=== PATIENT | male | born 1990 | race Caucasian/White ===

== ENCOUNTER 2020-03-01 03:52 | Emergency (ER) | payer OTHER ==
[~2020-03-01] VITALS: Ht 170.2 cm; Wt 70.5 kg
[2020-03-01] MEDS ORDERED: FLUORESCEIN OPHTH 1 MG STRIP OD ONE (06:15)
[2020-03-01] MEDS ORDERED: TETRACAINE 0.5% OPHTH SOLN 4ML OD ONE (06:15)
[2020-03-01] MEDS ORDERED: ACETAMINOPHEN 500 MG TAB PO ONE (06:15)
[2020-03-01 06:30] VITALS: BP 127/74
[2020-03-01] MEDS ORDERED: MOXI0.5S OS (07:54)
[2020-03-01] MEDS ORDERED: ERYT5OIN25 OS (07:54)
--- NOTE | 2020-03-02 11:40 | ER ---
DATE OF CONSULTATION: 03/01/2020 CHIEF COMPLAINT: Left corneal foreign body. HISTORY OF PRESENT ILLNESS: This is a 29-year-old, male, who was working without eye protection yesterday evening on his car at home. He was doing some grinding metal work overhead and noted there was some foreign body sensation yesterday evening when he went to bed. Patient woke up this morning with increased eye pain, redness, and blurry vision. He presented to the Emergency Department at [facility] Tuesday. PAST MEDICAL HISTORY: Noncontributory. PAST OCULAR HISTORY: Noncontributory. REVIEW OF SYSTEMS: Left eye pain, blurred vision, and left eye redness, otherwise not contributory. PAST OCULAR HISTORY: Denies any previous ocular surgery or use of eye drops. EXAMINATION: Patient 20/200 on visual acuity in the left eye, the intraocular pressure by finger palpation is soft to normal. Pupils are equal, round, and reactive to light without afferent pupillary defect (APD). Extraocular muscles are full and intact without restriction or gaze palsy. Confrontation visual king are full to count fingers bilaterally. Slit lamp examination: Lids, lashes, and adnexa are within normal limits in the right eye. In the left eye he has 1+ upper eyelid and lower eyelid edema. Conjunctivae and sclerae white and quiet in the right eye. He has 2+ injection in the left eye. Cornea in the right eye is clear, no corneal abrasion or foreign body. In the left eye, he has a paracentral metallic foreign body with a rust ring and a 2 mm paracentral corneal abrasion. There is no infiltrate. There is no endothelial edema. There are no hypopyon or cell reaction. Anterior chamber is deep and quiet in the right eye and deep and quiet in the left eye. Lens is clear. Dilated fundus examination is deferred at this time. ASSESSMENT AND PLAN: 1. Metallic foreign body in the left cornea is removed at the slit lamp with 30 gauge needle and forceps. Proparacaine was placed before and afterwards and the foreign body was removed without difficulty. 2. Corneal abrasion of the left eye, likely induced by ER staff attempted removal of foreign body. Patient will start moxifloxacin four times a day into the left eye times ten days and erythromycin ointment nightly to the left eye times ten days. Patient is instructed to followup in the office with me next week or return to the emergency room (ER) sooner if there are any changes in vision. Patient instructed to not rub his eyes and he is reminded that eye protection could have prevented this injury in the first place. Thank you for the consultation. ABY
== END 2020-03-01 08:00 | disposition home or self-care (01) ==
LOC: M ED 03:52
DX: T15.02XA Foreign body in cornea, left eye, initial encounter (principal); Y92.9 Unspecified place or not applicable; Y93.9 Activity, unspecified; Y99.9 Unspecified external cause status; F17.220 Nicotine dependence, chewing tobacco, uncomplicated